=== PATIENT | male | born 1985 | race Hispanic/Latino ===

== ENCOUNTER 2018-07-14 13:12 | Emergency (ER) | payer SELFPAY ==
[2018-07-14] MEDS ORDERED: Adacel (T-DAP) 0.5 ML SYRINGE ONE (14:10)
[2018-07-14 14:19] LABS: #Basophils 0.1 thou/uL (0.0-0.2); #Eosinphils 0.4 thou/uL (0.0-0.7); #Lymphocytes 1.5 thou/uL (1.20-3.40); #Monocytes 0.3 thou/uL (0.11-0.59); #Neutrophils 7.3 thou/uL (1.40-6.50); %Basophils 0.7 % (0.0-1.0); %Eosinophils 3.9 % (0.0-10.0); %Lymphocytes 15.8 % (21.0-51.0); %Monocytes 3.3 % (0.0-10.0); %Neutrophils 76.3 % (42.0-75.0); Hemoglobin 17.2 g/dL (14.0-18.0); Mean Corpuscular HGB CONC 31.8 g/dL (32.0-36.0); Mean Corpuscular Hemoglobin 28.3 pg (27.0-31.0); Mean Corpuscular Volume 89.1 fL (78.0-98.0); Mean Platelet Volume 8.1 fL (7.4-10.4); Platelet Count 212 thou/uL (130-400); RBC Distribution Width 12.6 % (11.5-14.5); Red Blood Cell (RBC) Count 6.06 mill/uL (4.70-6.10); White Blood Cell (WBC) Count 9.6 thou/uL (4.8-10.8)
[2018-07-14 14:43] LABS: ALT (SGPT) 33 U/L (8-55); AST (SGOT) 23 U/L (5-34); Albumin 4.4 g/dL (3.5-5.0); Alkaline Phosphatase 94 U/L (40-150); Anion Gap 14 mmol/L (10-20); BUN (Urea Nitrogen) 15 mg/dL (8.9-20.6); Bilirubin, Total 0.8 mg/dL (0.2-1.2); Calc. Creatinine Clearance 0 mL/min (70-130); Carbon Dioxide 24 mmol/L (22-29); Chloride 106 mmol/L (98-107); Estimated GFR-MDRD Greater than 90; Globulin 3.6 g/dL (2.4-3.5); Glucose 112 mg/dL (70-105); Potassium 3.9 mmol/L (3.5-5.1); Sodium 140 mmol/L (136-145)
--- NOTE | 2018-07-14 14:45 | RAD ---
LEFT RING FINGER THREE VIEWS: History: Pain. Comparison: None. FINDINGS: Mild soft tissue swelling. No acute displaced fracture or malalignment. IMPRESSION: Soft tissue swelling without fracture or malalignment. POS: [facility]
== END 2018-07-14 16:15 | disposition home or self-care (01) ==
LOC: ERS 13:12
DX: L03.012 Cellulitis of left finger (principal)
CPT/HCPCS: 36415; 80053; 85025; 85652; 86140; 90471; 90715

== ENCOUNTER 2018-08-16 20:37 | Emergency (ER) | payer SELFPAY | END 2018-08-16 21:51 | disposition home or self-care (01) | LOC: ERS 20:37 | DX: H60.91 Unspecified otitis externa, right ear (principal) | CPT/HCPCS: 99282 ==